=== PATIENT | male | born 1955 | race Caucasian/White ===

== ENCOUNTER 2016-08-08 19:25 | Observation (INO) | payer MEDICARE, MEDICAID ==
[~2016-08-08] VITALS: Ht 177.8 cm; Wt 69.8 kg
[~2016-08-08 19:25] MED LIST: ASPIRIN325 MG PO; BENADRYL50 MG PO; DILAUDID4 MG PO; DURAGESIC1 PATCH .1 TD; FUROSEMIDE20 MG PO; KLOR-CON M1515 MEQ PO; LIORESAL 10 MG10 MG PO; LYRICA300 MG PO; NEURONTIN800 MG PO; NICODERM C1 PATCH .1 TRANSDERM; NORCO 7.5/325 T1 TA1 PO; PLAVIX75 MG PO; TOPAMAX100 MG PO; TYLENOL PM1 TAB PO; ULTRAM50 MG PO; VALIUM5 MG PO; XANAX1 MG PO; ZOLOFT100 MG PO
[2016-08-08 20:12] LABS: BASOPHILS 0.9 % (0.0-2.0); EOSINOPHILS 1.6 % (0-7); HEMATOCRIT 34.4 % (42.0-54.0); HEMOGLOBIN 10.5 g/dL (13.5-17.5); LYMPHOCYTES 34.8 % (15-50); MCH 27.6 pg (26.0-34.0); MCHC 30.5 g/dL (31.0-37.0); MCV 90.5 fL (80.0-100.0); MEAN PLATELET VOLUME 8.8 fL (7.4-10.4); MONOCYTES 7.6 % (2-11); NEUTROPHILS 55.1 % (40-80); RDW 20.7 % (11.5-14.5); WBC 6.7 10x3/uL (4.8-10.8)
[2016-08-08 20:13] LABS: PLATELET COUNT 303 10x3/uL (130-400)
[2016-08-08 20:20] LABS: INR 1.14 (0.85-1.17); PROTIME 14.5 SECONDS (11.6-15.0)
[2016-08-08 20:21] LABS: APTT 33.5 SECONDS (22.8-39.4)
[2016-08-08 20:38] LABS: ALBUMIN 2.9 g/dL (3.4-5.0); ALKALINE PHOSPHATASE 124 U/L (46-116); ALT (SGPT) 47 U/L (10-68); CALC OSMOLALITY 280 mosm/kg (275-300); CALCIUM 8.3 mg/dL (8.5-10.1); CARBON DIOXIDE 25.5 mmol/L (21.0-32.0); CHLORIDE - SERUM 104 mmol/L (98-107); CREATININE - SERUM 1.3 mg/dL (0.6-1.3); GLUCOSE 89 mg/dL (74-106); POTASSIUM - SERUM 3.9 mmol/L (3.5-5.1); PROTEIN - SERUM 6.7 g/dL (6.4-8.2); SODIUM 140 mmol/L (136-145); UREA NITROGEN 21 mg/dL (7-18); eGFR NON AFRICAN AMERICAN 60 mL/min (90-120)
[2016-08-08 20:49] LABS: CHOL - HDL RATIO 2.4 ratio (2.3-4.9); CHOLESTEROL, TOTAL 122 mg/dL (0-200); CKMB 3.8 U/L (0.0-3.6); CREATINE KINASE 141 UL (21-232); HDL CHOLESTEROL 51 mg/dL (32-96); LDL CHOLESTEROL 55 mg/dL (0-100); LDL-HDL RATIO 1.1 ratio (1.5-3.5); PRO BNP 23665 pg/mL (0-125); TRIGLYCERIDE 84 mg/dL (30-200); TROPONIN-I 0.035 ng/mL (0.000-0.060)
[2016-08-08] MEDS ORDERED: CORDARONE200 MG PO (23:21)
[2016-08-08] MEDS ORDERED: COREG 3.1253.125 MG PO (23:22)
[2016-08-08] MEDS ORDERED: MIDODRINE HCL2.5 MG PO (23:23)
[2016-08-09] VITALS (7 sets, daily range): BP systolic 89–106; BP diastolic 50–62; Ht 177.8 cm; Wt 69.8 kg
--- NOTE | 2016-08-09 00:03 | NUR ---
PT ARRIVED VIA WHEELCHAIR FROM [facility], AWAKE, ALERT, ORIENTED, HYPER, MILDLY AGITATED, AT SIDE. BOTH PARTIES STATE THAT PT HAS BEEN AT [facility] OFF AND ON RECENTLY, AND LEFT THIS PAST Tuesday08/02/16 AMA, THEREFOR HE DID NOT RECEIVE ANY OF HIS D/C MEDICATIONS PRESCRIBED. PT STATES HE DOES HAVE A LONG AND CHRONIC HX OF ETOH, DRUG, AND NICOTINE ABUSE. PT IS REQUESTING A NICOTINE PATCH WHILE HE IS HERE. PT CAME TO ME IN AN ER GOWN, HOWEVER, HE HAS SINCE CHANGED INTO HIS CLOTHES, AND REFUSES TO STAY IN HIS ROOM. PT HAS BEEN SEEN WANDERING AROUND BOTH FLOORS OF THE HOSPITAL, THEN WENT TO THE ER WAITING ROOM, TOOK A WHEELCHAIR, AND IS NOW ROLLING AROUND. PT STATED HE WAS NOT GOING OUTSIDE, JUST NEEDED TO WALK AROUND, HOWEVER, PT WAS SEEN BY SECURITY OUTSIDE, LOOKING FOR AND SMOKING CIGARETTE BUTTS FROM THE GROUND. PT STATED THAT PRIOR TO COMING HERE, HIM AND HIS WERE DRIVING AROUND, AND HE STARTED HAVING CHEST PRESSURE. PT STATES HE WAS AT [facility] THIS AM, WHERE THEY TX HIM AND RELEASED HIM. PT STATES THEY (HIM AND HIS ) ARE HERE JUST UNTIL THEY CAN CATCH A BUS IN THE MORNING. PT STATES HE IS ONLY HERE SO HE CAN HAVE A WEEKLY VISIT WITH DR. GORDON, INSTRUCTED TO DO SO BY MANY OTHER PHYSICIANS. I HAVE HAD TO RETRIEVE MR. MORA FROM DOWN STAIRS, HE GOT LOST. PT IS NOW BACK IN HIS ROOM, AND I HAVE EXPLAINED TO BOTH HIM AND HIS THAT HE IS NOT TO LEAVE HIS ROOM ANYMORE. PT STATED HE UNDERSTOOD. BOTH PT AND HIS ARE REQUESTING LARGE AMOUNTS OF FOOD, AND BEVERAGES. PT AND ARE BOTH EATING TURKEY SANDWICHES AND GRAPES, PUDDING, COKES AND MILK. PT IS HIGHLY EXCITABLE, AND HYPER. 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 WILL CONTINUE TO MONITOR PT CLOSELY. I EXPLAINED TO PT THAT I WILL NOT GIVE HIM A NICOTINE PATCH AT THIS TIME BECAUSE I DO NOT TRUST THAT HE WILL STAY IN HIS ROOM. PT REFUSES TO CHANGE INTO ANOTHER HOSPITAL GOWN OR HOSPITAL SCRUBS.
--- NOTE | 2016-08-09 02:39 | NUR ---
PT LYING IN BED ON LEFT SIDE, AWAKE, ALERT, STATES HE IS HAVING DIFFICULTY GOING TO SLEEP, HE HAS FOR SEVERAL NIGHTS NOW. PT ALSO STATES THAT HE CAN'T FIND HIS PAIN PILL, IN WHICH I STATED HE IS NOT ALLOWED TO TAKE ANY MEDICATION WITHOUT MY KNOWLEDGE AND THAT HAS NOT BEEN ORDERED BY THE ADMITTING PHYSICIAN. PT DISAGREED WITH ME. I HAVE OVERHEARD PT AND ARGUING LOUDLY IN THE ROOM, DOOR REMAINS CLOSED. CONTINUE TO MONITOR CLOSELY.
--- NOTE | 2016-08-09 05:20 | NUR ---
PT CALLED C/O INCREASED ANXIETY, PAIN, AND RECTAL BLEEDING. I EXPLAINED TO PT THAT WE NEED A STOOL SAMPLE TO CHECK FOR BLEEDING AND INFECTION, AND HE BECAME ARGUMENTATIVE ABOUT IT. I DID PLACE A [place] HAT IN THE ROOM WITH PT AND HIS , EXPLAINED HOW TO USE IT, AND TO CALL ME [facility] WHEN HE HAS ANOTHER BM. THEY AGREED TO DO SO. PT IS NOW REQUESTING COKE AND ICE CREAM TO MAKE A COKE FLOAT. CONTINUE TO MONITOR CLOSELY.
--- NOTE | 2016-08-09 05:29 | NUR ---
PT STATES THAT THE ONLY REASON HE IS HERE IS BECAUSE HE DID NOT HAVE ANYWHERE TO GO LAST NIGHT.
--- NOTE | 2016-08-09 06:06 | NUR ---
TELEMETRY PLACED ON PT
--- NOTE | 2016-08-09 08:30 | NUR ---
ALERT AND ORIENTED X4. AT BEDSIDE. CARDIOLOGY ASSESSING PER CONSULT. COMPLAINS OF BUTTOCKS HURTING. HOME MEDICATIONS. CONTINUED. AGREE TO ALLOW WOUND CARE NURSE TO ASSESS WOUNDS. REFUSE WOUNDS TO BE MEASURED OR DRESSINGS APPLIED. WHEN ASSESSING FEET, PATIENT THREATENS TO KICK IF PAIN CAUSED. INITIATE PAIN MANAGEMENT. VERY DEMANDING AND RESTLESS. CLAIMS TO HAVE C-DIFF BUT REFUSES TO PROVIDE STOOL SPECIMEN. CONTINUE PLAN OF CARE. BED LOCKED AND LOW. CALL LIGHT IN REACH. 0 SIDERAILS UP PER PATIENT REQUEST. REFUSE SCDs.
--- NOTE | 2016-08-09 09:25 | NUR ---
WOUND CARE: NOTIFIED BY PRIMARY RN THAT PT HAS STATED HE HAS SORES ON HIS BOTTOM THAT TUNNEL TO BONE. PT ALLOWED WOUND CARE NURSE TO LOOK, BUT NOT TOUCH OR MEASURE WOUNDS. NOTED WHAT APPEARED A PRESSURE INJURY TO RIGHT COCCYX - APPROXIMATELY HALF DOLLAR SIZE. YELLOW NECROTIC WOUND BED, NO DRAINAGE NOTED - NO ODOR. ON LEFT COCCYX ANOTHER APPARENT PRESSURE INJURY APPROXIMATELY QUARTER SIZED. YELLOW/NECROTIC WOUND BED WITH NO DRAINAGE OR ODOR. FROM SACRUM TO COCCYX ANOTHER PRESSURE INJURY APPROX 5CM IN LENGTH IS NOTED. IT IS YELLOW AND NECROTIC WITH OUT ODOR. THERE IS A SCABBED AREA ON THE RIGHT ELBOW. RIGHT HEEL IS CRACKED/OPEN/DRY NO DRAINAGE LEFT HEEL IS CRACKING/PEELING AND DRY. STATED IF PRIMARY RN HURT HIS HEELS HE MIGHT "UNINTENTIONALLY" KICK HER. ASKED PT AGAIN FOR PERMISSION TO MEASURE AND TREAT WOUNDS AND HE REFUSED AND ROLLED BACK OVER ON HIS BOTTOM AND PULLED UP HIS PANTS. ASKED PT IF HE WOULD LET ME TELL HIM THE MOST IMPORTANT THING TO REMEMBER ABOUT PRESSURE WOUNDS. HE SAID YES SO I INSTRUCTED HIM TO STAY OFF HIS BOTTOM BY LYING ON HIS SIDE MUCH POSSIBLE. HE SAID HE WOULD DO THAT AND THEN ROLLED BACK ON HIS BOTTOM. I ASKED HIM PRIOR TO MY LEAVING ROOM, "WHAT IS THE MOST IMPORTANT THING YOU CAN DO TO HELP YOUR WOUNDS?" HE STATED, "STAY OFF MY BACK" WOUND CARE WILL MONITOR NEEDED.
[2016-08-09 14:38] LABS: % SATURATION 11 % (15-55); IRON 46 ug/dl (35-150); TOTAL IRON BIND CAPACITY 397 ug/dl (260-445); UNSAT IRON BIND CAPACITY 351 ug/dl (150-375)
--- NOTE | 2016-08-09 17:36 | NUR ---
LEFT UNIT TO GET WHEELCHAIR AFTER BEING TOLD MULTIPLE TIMES UNABLE TO LEAVE FLOOR.
--- NOTE | 2016-08-09 18:47 | NUR ---
RETURN TO ROOM. REINFORCE NOT ALLOWED TO LEAVE UNIT. NO CHANGE. PREPAIR SHIFT CHANGE REPORT.
[2016-08-10 04:00] VITALS: BP 95/57
[2016-08-10 06:10] LABS: BASOPHILS 0.7 % (0.0-2.0); EOSINOPHILS 1.2 % (0-7); HEMATOCRIT 29.3 % (42.0-54.0); HEMOGLOBIN 9.1 g/dL (13.5-17.5); IMMATURE GRANULOCYTES 0.5 % (0-5); LYMPHOCYTES 32.6 % (15-50); MCH 27.2 pg (26.0-34.0); MCHC 31.1 g/dL (31.0-37.0); MEAN PLATELET VOLUME 8.8 fL (7.4-10.4); RBC 3.34 10x6/uL (4.20-6.10); RDW 20.4 % (11.5-14.5)
[2016-08-10 06:13] LABS: MCV 87.7 fL (80.0-100.0); PLATELET COUNT 233 10x3/uL (130-400); WBC 4.2 10x3/uL (4.8-10.8)
[2016-08-10 06:17] LABS: ANION GAP 13.6 mmol/L (8-16); CALCIUM 8.1 mg/dL (8.5-10.1); CARBON DIOXIDE 24.8 mmol/L (21.0-32.0); CREATININE - SERUM 1.2 mg/dL (0.6-1.3); POTASSIUM - SERUM 3.4 mmol/L (3.5-5.1)
--- NOTE | 2016-08-10 07:32 | NUR ---
0600 ROUNDS THIS AM, PT AWAKE, ALERT, ORIENTED, REQUESTING HIS PRN PAIN MEDICATION AND MORNING MEDS. WHILE ADMINISTERING PTS IV LASIX IN HIS RT HAND, HIS IV BEGAN TO LEAK, AND BECAME INFILTRATED. PT REQUESTED THAT IT BE REMOVED AND IS REFUSING TO LET IT BE RESITED, STATING THAT LASIX CAN BE GIVEN PO. PT DENIES ANY OTHER NEEDS.
[2016-08-10 08:20] VITALS: BP 94/60
[2016-08-10 11:17] LABS: FOLATE (FOLIC ACID) - SERUM 15.7 ng/mL (>3.0)
[2016-08-10] MEDS ORDERED: FERREX 150 PLUS1 CAP PO (12:01)
[2016-08-10] MEDS ORDERED: CORDARONE200 MG PO (12:01)
[2016-08-10] MEDS ORDERED: KLOR-CON M1515 MEQ PO (12:01)
[2016-08-10] MEDS ORDERED: NEURONTIN800 MG PO (12:01)
[2016-08-10] MEDS ORDERED: PLAVIX75 MG PO (12:01)
[2016-08-10] MEDS ORDERED: COREG 3.1253.125 MG PO (12:01)
[2016-08-10 12:07] VITALS: BP 95/63
--- NOTE | 2016-08-10 14:32 | NUR ---
DISCHARGE INSTRUCTIONS GIVEN VERBALLY AND WRITTEN. DISCHARGE PAPERS SIGNED ON CHART. NO IV. ESCORT TO RIDE VIA WHEELCHAIR. REMAIN FREE FROM INJURY.
== END 2016-08-10 14:38 | disposition home or self-care (01) ==
LOC: D.ER 19:25 → D.M2 22:21 → OBSVTIME 22:21 → D.M2 22:21
PROVIDERS: Family Medicine; ADMIT Family Medicine
DX: I11.0 Hypertensive heart disease with heart failure (principal); I50.23 Acute on chronic systolic (congestive) heart failure; I42.9 Cardiomyopathy, unspecified; I25.10 Atherosclerotic heart disease of native coronary artery without angina pectoris; Z95.5 Presence of coronary angioplasty implant and graft; Z91.19 Patient's noncompliance with other medical treatment and regimen; I24.8 Other forms of acute ischemic heart disease; J44.9 Chronic obstructive pulmonary disease, unspecified; Z95.1 Presence of aortocoronary bypass graft; D64.9 Anemia, unspecified; F17.203 Nicotine dependence unspecified, with withdrawal; I44.7 Left bundle-branch block, unspecified

== ENCOUNTER 2016-08-14 03:57 | Emergency (ER) | payer MEDICARE, MEDICAID ==
[2016-08-09 11:03] VITALS: BMI 21.9
[~2016-08-14 03:57] MED LIST changes: +CORDARONE200 MG PO; +COREG 3.1253.125 MG PO; +FERREX 150 PLUS1 CAP PO; +MIDODRINE HCL2.5 MG PO
[2016-08-14 04:53] LABS: BASOPHILS 0.3 % (0.0-2.0); EOSINOPHILS 1.5 % (0-7); HEMATOCRIT 31.3 % (42.0-54.0); HEMOGLOBIN 9.7 g/dL (13.5-17.5); IMMATURE GRANULOCYTES 0.2 % (0-5); LYMPHOCYTES 20.6 % (15-50); MCH 27.6 pg (26.0-34.0); MCV 89.2 fL (80.0-100.0); MEAN PLATELET VOLUME 9.5 fL (7.4-10.4); NEUTROPHILS 72.4 % (40-80); RBC 3.51 10x6/uL (4.20-6.10); RDW 21.7 % (11.5-14.5); WBC 6.6 10x3/uL (4.8-10.8)
[2016-08-14 04:56] LABS: PLATELET COUNT 167 10x3/uL (130-400)
[2016-08-14 05:08] LABS: ALBUMIN 2.5 g/dL (3.4-5.0); ANION GAP 10.9 mmol/L (8-16); CALCIUM 8.2 mg/dL (8.5-10.1); CARBON DIOXIDE 28.3 mmol/L (21.0-32.0); CREATININE - SERUM 1.1 mg/dL (0.6-1.3); POTASSIUM - SERUM 3.2 mmol/L (3.5-5.1); PROTEIN - SERUM 6.4 g/dL (6.4-8.2)
[2016-08-14 05:16] LABS: TROPONIN-I 0.03 ng/mL (0.000-0.060)
== END 2016-08-14 06:15 | disposition home or self-care (01) ==
LOC: D.ER 03:57
PROVIDERS: Family Medicine
DX: I50.9 Heart failure, unspecified (principal); M54.9 Dorsalgia, unspecified

== ENCOUNTER 2016-08-16 03:37 | Emergency (ER) | payer MEDICARE, MEDICAID ==
[2016-08-09 11:03] VITALS: BMI 21.9
== END 2016-08-16 05:46 | disposition home or self-care (01) ==
LOC: D.ER 03:37
DX: I50.9 Heart failure, unspecified (principal); G89.4 Chronic pain syndrome; F17.200 Nicotine dependence, unspecified, uncomplicated

== ENCOUNTER 2016-08-19 18:46 | Emergency (ER) | payer MEDICARE, MEDICAID ==
[2016-08-09 11:03] VITALS: BMI 21.9
== END 2016-08-19 19:45 | disposition home or self-care (01) ==
LOC: D.ER 18:46
DX: J20.9 Acute bronchitis, unspecified (principal); I50.9 Heart failure, unspecified; G89.4 Chronic pain syndrome; F17.200 Nicotine dependence, unspecified, uncomplicated

== ENCOUNTER 2016-08-22 15:04 | Emergency (ER) | payer MEDICARE, MEDICAID ==
[2016-08-09 11:03] VITALS: BMI 21.9
[2016-08-22 15:42] LABS: BASOPHILS 0.9 % (0.0-2.0); EOSINOPHILS 1.5 % (0-7); HEMATOCRIT 34.1 % (42.0-54.0); HEMOGLOBIN 10.2 g/dL (13.5-17.5); IMMATURE GRANULOCYTES 0.2 % (0-5); MCH 26.5 pg (26.0-34.0); MCHC 29.9 g/dL (31.0-37.0); MCV 88.6 fL (80.0-100.0); MEAN PLATELET VOLUME 11.5 fL (7.4-10.4); NEUTROPHILS 51.4 % (40-80); RBC 3.85 10x6/uL (4.20-6.10); RDW 21.1 % (11.5-14.5); WBC 5.5 10x3/uL (4.8-10.8)
[2016-08-22 15:43] LABS: PLATELET COUNT 201 10x3/uL (130-400)
[2016-08-22 16:15] LABS: ALBUMIN 2.5 g/dL (3.4-5.0); ALKALINE PHOSPHATASE 159 U/L (46-116); ALT (SGPT) 132 U/L (10-68); CALC OSMOLALITY 278 mosm/kg (275-300); CALCIUM 8.1 mg/dL (8.5-10.1); CARBON DIOXIDE 23.7 mmol/L (21.0-32.0); CHLORIDE - SERUM 102 mmol/L (98-107); CREATININE - SERUM 1.2 mg/dL (0.6-1.3); GLUCOSE 127 mg/dL (74-106); POTASSIUM - SERUM 3.4 mmol/L (3.5-5.1); PROTEIN - SERUM 6.9 g/dL (6.4-8.2); SODIUM 139 mmol/L (136-145); UREA NITROGEN 10 mg/dL (7-18); eGFR NON AFRICAN AMERICAN 65 mL/min (90-120)
[2016-08-22 16:27] LABS: CKMB 0.8 U/L (0.0-3.6); CREATINE KINASE 46 UL (21-232); TROPONIN-I 0.017 ng/mL (0.000-0.060)
== END 2016-08-22 18:00 | disposition home or self-care (01) ==
LOC: D.ER 15:04
PROVIDERS: Family Medicine
DX: I50.9 Heart failure, unspecified (principal); F17.200 Nicotine dependence, unspecified, uncomplicated; I49.3 Ventricular premature depolarization; I45.4 Nonspecific intraventricular block

== ENCOUNTER 2016-08-27 20:31 | Emergency (ER) | payer MEDICARE, MEDICAID ==
[2016-08-09 11:03] VITALS: BMI 21.9
[2016-08-27 21:09] LABS: BASOPHILS 0 % (0.0-2.0); EOSINOPHILS 0 % (0-7); HEMATOCRIT 34.9 % (42.0-54.0); HEMOGLOBIN 10.8 g/dL (13.5-17.5); IMMATURE GRANULOCYTES 0.2 % (0-5); LYMPHOCYTES 25.8 % (15-50); MCH 26.1 pg (26.0-34.0); MCHC 30.9 g/dL (31.0-37.0); MCV 84.3 fL (80.0-100.0); MEAN PLATELET VOLUME 10.9 fL (7.4-10.4); MONOCYTES 5.3 % (2-11); NEUTROPHILS 68.7 % (40-80); RBC 4.14 10x6/uL (4.20-6.10); RDW 20.5 % (11.5-14.5); WBC 5.9 10x3/uL (4.8-10.8)
[2016-08-27 21:20] LABS: ALBUMIN 2.8 g/dL (3.4-5.0); ALKALINE PHOSPHATASE 155 U/L (46-116); ALT (SGPT) 87 U/L (10-68); BILIRUBIN - TOTAL 1.58 mg/dL (0.2-1.3); CALC OSMOLALITY 277 mosm/kg (275-300); CALCIUM 8.1 mg/dL (8.5-10.1); CARBON DIOXIDE 26.2 mmol/L (21.0-32.0); CHLORIDE - SERUM 99 mmol/L (98-107); CREATININE - SERUM 1.3 mg/dL (0.6-1.3); GLUCOSE 105 mg/dL (74-106); POTASSIUM - SERUM 4.5 mmol/L (3.5-5.1); PROTEIN - SERUM 6.6 g/dL (6.4-8.2); SODIUM 136 mmol/L (136-145); UREA NITROGEN 29 mg/dL (7-18); eGFR NON AFRICAN AMERICAN 59 mL/min (90-120)
[2016-08-27 21:23] LABS: PLATELET COUNT 308 10x3/uL (130-400)
[2016-08-27 21:31] LABS: CKMB 2.2 U/L (0.0-3.6); CREATINE KINASE 270 UL (21-232); PRO BNP 15786 pg/mL (0-125); TROPONIN-I 0.026 ng/mL (0.000-0.060)
[2016-08-27 21:43] LABS: MAGNESIUM - SERUM 2.1 mg/dL (1.8-2.4); PHOSPHOROUS 3.1 mg/dL (2.5-4.9)
== END 2016-08-28 05:45 | disposition home or self-care (01) ==
LOC: D.ER 20:31
PROVIDERS: Surgery
DX: I50.9 Heart failure, unspecified (principal); R00.0 Tachycardia, unspecified; I49.3 Ventricular premature depolarization; I45.4 Nonspecific intraventricular block